=== PATIENT | female | born 1940 | race Caucasian/White ===

== ENCOUNTER → 2017-01-30 | Day surgery (SDC) | payer MEDICARE ==
[~2017-01-30] MED LIST: CALCIUM 500 + D1 TAB PO; CENTRUM PO; COLESTID; CRESTOR5 MG PO; DICLOFENAC PO; FOLIC ACID PO; GLUCOSAMINE; HYDROCODONE-APA1 T30 PO; LANSOPRAZOLE30 M2 DOB; LOTREL 5/20 MG1 CAP PO; MONTELUKAST SOD10 MG PO; PREMARIN PO; SYNTHROID0.05 MG PO; TRIAMTERENE-HC1 EAC1 PO; VICODIN ES 7.51 EAC1 PO; VITAMIN D3400 UNI1 PO; XARELTO20 MG PO; XYZAL5 MG PO
--- NOTE | ~2017-01-30 | OR ---
Unit #: [id number] #: [id number] Patient: POLI PACK [id number] [address] [place], [place] [address] [id number] O MR#: [id number] NAME: POLI PACK ROOM: Date of Procedure: 01/30/2017 Admission Date: 01/30/2017 Surgeon: Kiran Chapman M.D. : 1940 Attending Physician: Kiran Chapman M.D. Primary Care Physician: Chuck Serna M.D. OPERATIVE REPORT PRIMARY CARE PHYSICIAN Dr. Chuck Serna PREOPERATIVE DIAGNOSES Diarrhea and weight loss. In addition, the patient has presented with history of hematochezia. She also mentions intermittent dysphagia to solids. PROCEDURES PERFORMED Upper gastrointestinal endoscopy as well as esophageal dilation using a Merino dilator as well as colonoscopy with biopsies. POSTOPERATIVE DIAGNOSIS For upper endoscopy: 1. The patient had distal esophageal mucosal ring, although this was nonobstructing. It was dilated using a 60-Bulgarian Merino dilator with effective dilation achieved as evidenced by a relook endoscopy. The rest of the examination up to third part of duodenum was normal. For colonoscopy: 1. The patient had large external hemorrhoids. 2. Moderate pandiverticulosis. 3. There was evidence of nonspecific colitis throughout the colon. This was in the form of patchy erythema with normal intervening mucosa randomly scattered all over the colonic mucosa. Multiple random colonic biopsies obtained from these areas and sent for histology. No polyps were seen. RECOMMENDATIONS The patient being started on Colestid 1 g p.o. t.i.d. In addition, she will skip a day in case of any constipation. In addition, she will use p.r.n. Lomotil. SEDATION USED MAC. DESCRIPTION OF PROCEDURE Following detailed explanation of potential risks and complications of an upper endoscopy and a colonoscopy, namely perforation, bleeding, and complications related to sedation, the patient was brought to GI lab and laid in the left lateral decubitus position. Lubricated tip of the Olympus video upper endoscope was passed through the bite block into the proximal esophagus under direct vision. The entire esophageal mucosa was examined. The patient was noted to have distal esophageal mucosal ring. This was felt to be nonobstructing. The scope was then advanced into the Unit #: [id number] #: [id number] Patient: POLI PACK gastric cavity and the latter was insufflated. Mucosa of the fundus, body, and antrum examined and appeared normal. Pylorus was intubated with visualization of the normal duodenal bulb and second and third part of the duodenum. Upon withdrawal and retroflexion, incisura, cardia, and greater curve examined and no additional findings noted. The scope was then withdrawn in the distal esophagus. The entire esophageal mucosa was examined all the way up to pharynx. No additional findings noted. A 60-Bulgarian Merino dilator was introduced through the oral cavity and advanced into the esophagus. Relook endoscopy showed excellent dilation with fracturing of the ring. The scope was then withdrawn all the way up to pharynx. No additional findings noted. The examination table was then turned by 180 degrees and the patient positioned for a colonoscopy. A digital rectal examination was performed, which was normal. Lubricated tip of the Olympus video colonoscope was inserted through the anus and advanced under direct vision. The scope was advanced and passed up to sigmoid into descending colon. Multiple medium-sized diverticula were noted in this area. In addition, the patient had changes suggestive of nonspecific colitis in the form of patchy erythema and erosions. There being no earlene ulcers or exudates. The scope tip was then navigated all the way up to cecum with visualization of ileocecal valve and the appendiceal orifice. Preparation was excellent with good visualization and photodocumentation was obtained. Last few inches of the terminal ileum also visualized after intubation of the ileocecal valve and appeared normal. Successive segments of the colonic mucosa were examined upon withdrawal. The patient was noted to have multiple polyps scattered throughout the entire colon. In addition, there were changes of nonspecific colitis again scattered throughout the entire colon in the form of patchy erythema. Multiple biopsies obtained from the entire colonic mucosa and sent for histology in one bottle. The patient did have large external hemorrhoids without any internal hemorrhoids being present at the same time. These were evidence on rectal examination initially and were photographed. The scope was then withdrawn. The patient returned to the recovery area. She tolerated the procedure without any postprocedure complications. Dictated by... Kane Winn TD: 01/30/2017 12:47 JOB #: [id number] OPERATIVE REPORT Page 1 of 1 X Kiran Chapman MD PROCEDURE OPERATIVE NOTE
== END | disposition home or self-care (01) ==
LOC: COPS 05:57
DX: K52.9 Noninfective gastroenteritis and colitis, unspecified (principal); K22.2 Esophageal obstruction; K64.4 Residual hemorrhoidal skin tags; I48.91 Unspecified atrial fibrillation; E89.0 Postprocedural hypothyroidism; Z79.01 Long term (current) use of anticoagulants; Z79.899 Other long term (current) drug therapy; Z90.49 Acquired absence of other specified parts of digestive tract; Z96.653 Presence of artificial knee joint, bilateral; Z98.890 Other specified postprocedural states
CPT/HCPCS: 88305; J2250

== ENCOUNTER → 2017-02-08 | Outpatient (CLI) | payer MEDICARE ==
--- NOTE | ~2017-02-08 | MY29 ---
[facility] A Service of [facility] [place] RADIOLOGY TEXT RESULTS PATIENT: POLI PACK LOCATION: [facility] : [birth year] UNIT #: [id number] AGE: [address]: MAI PIZANO PA-C SEX: F ORDER DR: [id number] [facility]. [place], [place] [address] [id number] O MR#: [id number] Acc #: [id number] NAME: POLI PACK : 1940 SEX: F STUDY DATE/TIME: 02/08/2017 14:47 UNIT: [facility] ROOM: STUDY DESCRIPTION: MY [facility] SCREENING W/ CAD BILAT Attending Physician: Mai Pizano Pa-C Ordering Physician: Physician Non-Staff Primary Care Physician: Chuck Serna M.D. MEDICAL IMAGING REPORT This report is preliminary unless electronic signature is present EXAM Bilateral digital screening mammogram with CAD. INDICATIONS Routine screening. No reported problems and no personal or family history of breast cancer. History of breast biopsy on the right with benign results. TECHNIQUE CC and MLO views of the breasts were obtained reviewed with an approved CAD device. COMPARISON 01/12/2016, 01/05/2015, 12/24/2013. FINDINGS Breast parenchyma is heterogeneously dense, degrading sensitivity of screening mammography. The pattern is unchanged. Mole markers of the scar marker are present. There is no new dominant nodule, mass or suspicious clustered microcalcifications. Generalized fibronodular pattern stable. Benign calcifications present. Exaggerated CC lateral views were performed and are also negative. IMPRESSION 1. Benign dense mammogram. 1 year followup recommended. Patients over the age of 40 are entered into a reminder system with target due date for the next mammogram. A result letter will be sent to the patient. BIRADS: [address] [facility] A Service [facility] RADIOLOGY TEXT RESULTS PATIENT: POLI PACK LOCATION: [facility] : 42 UNIT #: [id number] AGE: [address]: MAI PIZANO PA-C SEX: F ORDER DR: Dictated by... Jayjay Fowler M.D. THIS IS AN ELECTRONICALLY VERIFIED REPORT Jayjay Fowler M.D. at 02/09/2017 5:21 PM JEREMIE/janna TD: 02/09/2017 11:29 JOB #: [id number] MEDICAL IMAGING REPORT Page 1 of 1 COPY
== END | disposition home or self-care (01) ==
LOC: CWCC 01-12 14:30
DX: Z12.31 Encounter for screening mammogram for malignant neoplasm of breast (principal); Z98.890 Other specified postprocedural states; Z91.89 Other specified personal risk factors, not elsewhere classified
CPT/HCPCS: G0202